=== PATIENT | female | born 1940 ===

== ENCOUNTER 2018-03-07 12:06 | Inpatient (IN) | payer OTHER ==
[~2018-03-07] VITALS: Ht 152.4 cm; Wt 51.7 kg
[2018-03-07] MEDS ORDERED: OSTERA TABLET1 EACH (12:15)
[2018-03-07] MEDS ORDERED: SYNTHROID50 MCG (12:16)
[2018-03-07] MEDS ORDERED: FOLIC ACID1 MG (12:16)
[2018-03-07] MEDS ORDERED: ZOCOR80 MG PO (12:16)
[2018-03-07] MEDS ORDERED: GLYCOTROL CAPS1 EACH (12:17)
== END 2018-03-16 20:09 | disposition home or self-care (01) | DRG 392 ==
LOC: ER 12:06 → MEDJ 17:48
PROC: BW25Y0Z Computerized Tomography (CT Scan) of Chest, Abdomen and Pelvis using Other Contrast, Unenhanced and Enhanced (ICD-10-PCS; 2018-03-07)
PROC: 30233N1 Transfusion of Nonautologous Red Blood Cells into Peripheral Vein, Percutaneous Approach (ICD-10-PCS; principal; 2018-03-15)
DX: K57.32 Diverticulitis of large intestine without perforation or abscess without bleeding (principal); E86.0 Dehydration; D50.8 Other iron deficiency anemias; E03.8 Other specified hypothyroidism; E78.00 Pure hypercholesterolemia, unspecified

== ENCOUNTER 2018-05-23 07:03 | Day surgery (SDC) | payer OTHER ==
[~2018-05-23 07:03] MED LIST: FOLIC ACID1 MG; GLYCOTROL CAPS1 EACH; OSTERA TABLET1 EACH; SYNTHROID50 MCG; ZOCOR80 MG PO
== END 2018-05-23 11:18 | disposition home or self-care (01) ==
LOC: AMB-ENDOS 07:03
DX: K57.20 Diverticulitis of large intestine with perforation and abscess without bleeding (principal)